=== PATIENT | female | born 2000 | race African-American/Black ===

== ENCOUNTER 2024-02-10 08:06 | Emergency (ER) | payer MEDICAID ==
[~2024-02-10] VITALS: Ht 172.7 cm; Wt 70.0 kg
[2024-02-10 08:12] VITALS: O2SAT 98
[2024-02-10] MEDS: ONDANSETRON 4MG ODT PO STA (08:40)
[2024-02-10 08:54] LABS: HEMATOCRIT. 38.7 % (36.0-48.0); HEMOGLOBIN. 12.6 g/dL (12.0-16.0); MEAN CORPUSCULAR HEMOGLOBIN 26.8 pg (28.0-32.0); MEAN CORPUSCULAR HGB CONC 32.6 g/dL (31.0-37.0); MEAN CORPUSCULAR VOLUME 82.2 fL (81.0-99.0); MEAN PLATELET VOLUME 7.5 fl (7.4-10.4); PLATELET 281 x1000/uL (130-400); RED BLOOD CELL COUNT 4.71 mill/uL (4.2-5.4); RED CELL DISTRIBUTION WIDTH 16.1 % (11.6-14.6); WHITE BLOOD COUNT 9.6 x1000/uL (4.5-11.0)
[2024-02-10 08:56] LABS: DIFFERENTIAL COMMENT 1
[2024-02-10 09:04] LABS: CARBON DIOXIDE 27 mEq/L (21-32); CHLORIDE 107 mEq/L (98-107); POTASSIUM 4.5 mEq/L (3.5-5.1); SODIUM 139 mEq/L (136-145)
[2024-02-10 09:05] LABS: CALCIUM 10.3 mg/dL (8.7-10.4)
[2024-02-10 09:09] LABS: HCG SCREEN NEGATIVE
[2024-02-10 09:10] LABS: GLUCOSE 100 mg/dL (70-105); UREA NITROGEN BLOOD 15 mg/dL (9-23)
[2024-02-10] MEDS ORDERED: ONDA-239 PO (09:20)
[2024-02-10] MEDS ORDERED: CYCL10TA21 MT (09:20)
[2024-02-10 09:27] LABS: ANISOCYTOSIS 1+; PLATELET ESTIMATE NORMAL
[2024-02-10 09:30] VITALS: BP 128/68; PULSE 90; RESP 20; TEMP 36.78072; O2SAT 98
== END 2024-02-10 09:35 | disposition home or self-care (01) ==
LOC: ER 08:18
DX: M54.9 Dorsalgia, unspecified (principal); R11.2 Nausea with vomiting, unspecified
CPT/HCPCS: 99283; 80048; 84703; 83690; 85025; 36415; Q0162